=== PATIENT | male | born 1980 | race American Indian/Alaskan Native ===

== ENCOUNTER 2016-09-27 23:45 | Emergency (ER) | payer SELFPAY ==
[2016-09-28 00:14] VITALS: BP 112/67
[2016-09-28 01:38] LABS: Bilirubin,Urine NEG (Negative); Blood,Urine NEG (Negative); Ketones,Urine NEG (Negative); Leukocyte Esterase,Urine SM (Negative); Mucus,Urine FEW /HPF; Nitrite,Urine NEG (Negative); Protein,Urine <15 mg/dL mg/dL (Negative)
--- NOTE | 2016-09-28 03:24 | Emergency Department Report ---
ED Male HPI - General Chief complaint: Urogenital-Male Stated complaint: DISCARGE AFTER URINATION Time Seen by Provider: 09/28/16 02:40 Source: patient Mode of arrival: Ambulatory Limitations: No Limitations - History of Present Illness Initial comments: Patient here reports that he is having in burning with urination 2 days and also reported that he is having in penile discharge this yellow for the past 2 days. He said he had unsafe sex and after he had sex he noticed that he had yellow discharge 2 days. Does not know if partner has symptoms of STD. Describe urinary pain as burning and 310. Denies any abdominal or back pain. Denies any fever or chills. Denies any nausea or vomiting. Denies any medical problems. MD Complaint: penile discharge, dysuria Onset/Timin -: days(s) Radiation: none Severity: mild Severity scale (0 -10): 3 Worsens with: urination new sexual partner discharge, dysuria. denies: swelling, mass, rash, urinary retention, blood in urine, fever, nausea/vomiting, incontinence - Related Data Sexually active: Yes Previous Rx's Medication Instructions Recorded Last Taken Type Promethazine [Phenergan] 25 mg PO Q6H PRN #14 tablet 11/02/13 Unknown Rx Ciprofloxacin HCl [Ciprofloxacin 500 mg PO Q12H #20 tab 09/28/16 Unknown Rx TAB] Allergies Allergy/AdvReac Type Severity Reaction Status Date / Time No Known Allergies Allergy Unverified 11/02/13 19:34 ED Review of Systems ROS: Stated complaint: DISCARGE AFTER URINATION Other details as noted in HPI Comment: All other systems reviewed and negative Constitutional: denies: chills, fever ENT: denies: throat pain Respiratory: no symptoms reported Cardiovascular: denies: chest pain, palpitations, edema, syncope Gastrointestinal: denies: abdominal pain, nausea, vomiting Genitourinary: dysuria, discharge. denies: urgency, frequency, hematuria, testicular pain, testicular mass Musculoskeletal: denies: back pain, arthralgia Skin: denies: rash Neurological: denies: headache ED Past Medical Hx - Past Medical History Previous Medical History?: No - Surgical History Past Surgical History?: No - Family History Family history: no significant - Social History Smoking Status: Current Every Day Smoker Substance Use Type: Alcohol - Medications Home Medications: Home Medications Medication Instructions Recorded Confirmed Last Taken Type Promethazine [Phenergan] 25 mg PO Q6H PRN #14 tablet 11/02/13 Unknown Rx Ciprofloxacin HCl [Ciprofloxacin 500 mg PO Q12H #20 tab 09/28/16 Unknown Rx TAB] ED Physical Exam - General Limitations: No Limitations General appearance: alert, in no apparent distress - Head Head exam: Present: atraumatic, normocephalic, normal inspection - Eye Eye exam: Present: normal appearance, PERRL, EOMI Pupils: Present: normal accommodation - Neck Neck exam: Present: normal inspection, full ROM. Absent: tenderness, meningismus, lymphadenopathy - Respiratory Respiratory exam: Present: normal lung sounds bilaterally. Absent: respiratory distress, chest wall tenderness - Cardiovascular Cardiovascular Exam: Present: regular rate, normal rhythm, normal heart sounds - GI/Abdominal GI/Abdominal exam: Present: soft, normal bowel sounds. Absent: distended, tenderness, guarding, rebound, rigid - Extremities Exam Extremities exam: Present: normal inspection, full ROM, normal capillary refill. Absent: tenderness, pedal edema, joint swelling, calf tenderness - Back Exam Back exam: Present: normal inspection, full ROM. Absent: tenderness, CVA tenderness (R), CVA tenderness (L), muscle spasm, paraspinal tenderness, vertebral tenderness, rash noted - Neurological Exam Neurological exam: Present: alert, oriented X3, normal gait, reflexes normal. Absent: motor sensory deficit - Psychiatric Psychiatric exam: Present: normal affect, normal mood - Skin Skin exam: Present: warm, dry, intact, normal color. Absent: rash ED Course Vital Signs 09/27/16 23:50 Temperature 99 F Pulse Rate 80 Respiratory 20 Rate Blood Pressure 112/67 [Right] O2 Sat by Pulse 99 Oximetry - Reevaluation(s) Reevaluation #1: 09/28/16 03:53 I discussed the patient that his urine result shows that he has bladder infection and urine cultures was sent and will return in a few days. I also discussed with him if he wants to be treated in emergency room for gonorrhea, Chlamydia and Trichomonas or if he wants to wait until his results come back. Patient TO be treated in emergency room. He was given Rocephin 1 g IM to cover her UTI and gonorrhea, Flagyl2 g by mouth for Trichomonas and azithromycin 1 g by mouth for chlamydia. ED Medical Decision Making - Lab Data Lab Results 09/28/16 Range/Units 00:20 Urine Color Yellow (Yellow) Urine Turbidity Clear (Clear) Urine pH 6.0 (5.0-7.0) Ur Specific [place] 1.025 (1.003-1.030) Urine Protein <15 mg/dl (Negative) mg/dL Urine Glucose (UA) Neg (Negative) mg/dL Urine Ketones Neg (Negative) mg/dL Urine Blood Neg (Negative) Urine Nitrite Neg (Negative) Urine Bilirubin Neg (Negative) Urine Urobilinogen 4.0 (<2.0) mg/dL Ur Leukocyte Esterase Sm (Negative) Urine WBC (Auto) 49.0 H (0.0-6.0) /HPF Urine RBC (Auto) 5.0 (0.0-6.0) /HPF U Epithel Cells (Auto) < 1.0 (0-13.0) /HPF Urine Mucus Few /HPF Urine culture pending Gonorrhea and Chlamydia pending - Medical Decision Making ED course: Pt here concern for STD due to penile discharge and urinary burning 2 days. He had unprotected sex 2 days prior to symptoms starting and reports he is concern for STD.I discussed with patient that his urine result shows that he has bladder infection and urine cultures was sent and will return in a few days. I also discussed with him if he wants to be treated in emergency room for gonorrhea, Chlamydia and Trichomonas or if he wants to wait until his results come back. Patient TO be treated in emergency room. He was given Rocephin 1 g IM to cover her UTI and gonorrhea, Flagyl2 g by mouth for Trichomonas and azithromycin 1 g by mouth for chlamydia. I encouraged patient to let his partner know that he was treated for STD in emergency room. I also encouraged him to have safe sex, follow up with [facility] in 7-10 days for repeat STD test then to include HIV and to refrain from drinking all call over the next 7 days as medication given to treat Trichomonas can cause nausea and vomiting when medics at all call. I also instructed him that he will be discharged home on antibiotic for urinary tract infection. Patient was understanding of discharge instruction and discharged home with prescription for ciprofloxacin Critical care attestation.: If time is entered above; I have spent that time in minutes in the direct care of this critically ill patient, excluding procedure time. ED Disposition Clinical Impression: Penile discharge, Acute cystitis without hematuria, Concern about STD in male without diagnosis, Dysuria Disposition: [id number] TO HOME OR SELFCARE Is pt being admited?: No Does the pt Need Aspirin: No Condition: Stable Instructions: Urinary Tract Infection in Men (ED), Safe Sex (ED), Sexually Transmitted Diseases (ED) Additional Instructions: Please inform her partner that you're treated in emergency room for STD and here she will need to be checked at health department or by their primary care physician Please follow up with [facility] in 7-10 days to have repeat STD test then and HIV test then Please take antibiotic as prescribed Did not drink alcohol for the next 7 days as medication given to treat Trichomonas can cause you to have nausea or vomiting when medics that I'll call. Practice safe sex. Refrain from having sex for the next 2 weeks Prescriptions: Ciprofloxacin HCl [Ciprofloxacin TAB] 500 mg PO Q12H #20 tab Referrals: [facility] [Outside] - 7-10 days Forms: Work/School Release Form(ED)
[2016-09-28] MEDS ORDERED: ROCEPHIN IM STA (03:26)
[2016-09-28] MEDS ORDERED: XYLOCAINE 1% MPF 5 mL INFILTRATI ONE (03:26)
[2016-09-28] MEDS ORDERED: FLAGYL PO ONE (03:27)
[2016-09-28] MEDS ORDERED: ZITHROMAX PO ONE (03:27)
== END 2016-09-28 04:09 | disposition home or self-care (01) ==
LOC: ED 23:45
DX: R36.9 Urethral discharge, unspecified (principal); N30.00 Acute cystitis without hematuria; R30.0 Dysuria; F17.200 Nicotine dependence, unspecified, uncomplicated
CPT/HCPCS: 81001; 87086; 87591; 96372; 99283; J0696